=== PATIENT | male | born 1945 | race Caucasian/White ===

== ENCOUNTER → 2017-05-01 | Outpatient (CLI) | payer MEDICARE ==
[~2017-05-01] MED LIST: ADULT LOW DOSE81 MG; ANTIVERT25 MG PO; ASPIR 8181 MG PO; ASPIRIN325; ASPIRIN325 PO; ATIVAN0.5 MG PO; ATIVAN1 MG PO; AUGMENTIN 875875 M1 PO; AUGMENTIN 875875 MG PO; AURALGAN EAR DR14 ML OTIC; AZO STANDARD95 MG; B-12250 MCG PO; BACTRIM DS TAB1 EAC1 PO; BENADRYL25 MG; BENADRYL25 MG PO; BENTYL 10 MG CA10 MG PO; CELEXA 20 MG TA20 MG PO; CIPROFLOXACIN500 M1; CIPROFLOXACIN500 M1 PO; CIPROFLOXACIN500 M3 PO; CLONIDINE0.1 PO; CYCLOBENZAPRINE10 MG; DITROPAN PO; DITROPAN XL5 MG PO; DONNATAL EXTEN1 EACH PO; DONNATAL EXTEN1 EACH SL; DURAGESIC25 MCG/HR TRANSDERM; FLAGYL500 MG PO; FLEXERIL PO; FLOMAX; FLOMAX0.4 MG PO; FLONASE 0.05%50 MCG NASAL; HYDROCODON-ACE1 EAC2; HYDROCODON-ACE1 EAC8 PO; HYDROCODONE-AP1 EA15 PO; HYDROCODONE-AP1 EAC6 PO; HYOSCYAMINE; HYOSCYAMINE0.15 MG PO; HYOSCYAMINE0.375 M2 PO; IMDUR 30 MG TAB30 M1 PO; KLOR-CON 1010 MEQ PO; LASIX 20 MG TAB20 MG PO; LEVAQUIN 500 M500 M2 PO; LIPITOR20 MG PO; LISINOPRIL10 MG PO; LOPRESSOR25 PO; MACROBID 100 M100 M1 PO; MELATONIN1 MG PO; MOBIC15 MG PO; MOBIC7.5 M1 PO; MORPHINE SULFAT15 M3; MULTIVITAMINS PO; NEURONTIN 300300 M1 PO; NEURONTIN600 MG PO; NORCO 10-325 T1 EAC1 PO; NORCO 5-325 TA1 EACH PO; NYSTATIN 1100000 U/M PO; OMEPRAZOLE40 MG PO; ONDANSETRON HCL4 M2 PO; OXYBUTYNIN 5 MG5 M2 PO; OXYBUTYNIN CHLO10 MG PO; PERCOCET 5-3251 EACH PO; PERCOCET PO; PHENERGAN 25 MG25 M1 PO; POTASSIUM PO; POTASSIUM99 M1 PO; PREDNISONE 20 M20 M1 PO; PREDNISONE50 MG PO; PRILOSEC 20 MG20 MG PO; PRINIVIL20 MG PO; PROMS25 WY PO; PROSCAR 5MG TABL5 MG PO; PROTONIX40 M1 PO; PROTONIX40 MG PO; PYRIDIUM200 MG PO; ROBAXIN 750 MG750 MG PO; ROXICODONE15 MG; SENNA S TABLET1 EACH PO; SILVADENE20 GM TOP; STOOL SOFTENER1 EAC2 PO; SUDAFED30 MG PO; TOPROL XL25 MG PO; TRAMADOL 50 MG50 MG PO; UROXATRAL PO; VESICARE 5 MG TA5 M1 PO; VITAMIN D3400 UNIT PO; XANAX; XANAX 0.5 MG0.5 M1 PO; XANAX 0.5 MG0.5 MG PO; XANAX 1 MG TABLE1 MG PO; XYZAL5 MG PO; ZANTAC 150MG T150 M1 PO; ZANTAC 150MG T150 MG PO; ZOCOR20 MG PO; ZOFRAN; ZOFRAN ODT4 MG PO; ZOFRAN ODT4 MG SUBLING; ZOFRAN4 MG; ZOFRAN4 MG PO; [UNRECOGNIZED DRUG - OTHER] PO
== END ==
LOC: M.LAB 04:00
DX: Z01.812 Encounter for preprocedural laboratory examination (principal); E11.9 Type 2 diabetes mellitus without complications

== ENCOUNTER → 2017-05-28 | Outpatient (CLI) | payer MEDICARE | LOC: M.RAD 09:00 | DX: K44.9 Diaphragmatic hernia without obstruction or gangrene (principal); K21.9 Gastro-esophageal reflux disease without esophagitis; E11.9 Type 2 diabetes mellitus without complications; I10 Essential (primary) hypertension; K57.90 Diverticulosis of intestine, part unspecified, without perforation or abscess without bleeding; I48.0 Paroxysmal atrial fibrillation; I25.5 Ischemic cardiomyopathy; I25.10 Atherosclerotic heart disease of native coronary artery without angina pectoris; E05.90 Thyrotoxicosis, unspecified without thyrotoxic crisis or storm; R11.10 Vomiting, unspecified ==

== ENCOUNTER → 2017-09-23 | Outpatient (CLI) | payer MEDICARE | LOC: M.RAD 14:25 | DX: M43.16 Spondylolisthesis, lumbar region (principal); G89.29 Other chronic pain ==

== ENCOUNTER 2018-04-07 13:27 | Inpatient (IN) | payer MEDICARE ==
[~2018-04-07] VITALS: Ht 175.3 cm; Wt 74.4 kg
--- NOTE | ~2018-04-07 | CON ---
[address] [address] CONSULTATION Name: AMYKATARINA CELIS Room: [address] IN M.R.#: [id number] Admission: 04/07/18 Attend Phys: Madisyn Soto Discharge: Date of : 45 Report #: [id number] THIS REPORT FOR: //name// CC: Hermila Hardy DATE OF SERVICE: 04/08/2018 HISTORY OF PRESENT ILLNESS: This a pleasant 72-year-old male with past medical history of dementia, hypertension, hypothyroidism, coronary artery disease, who was brought in from his long term after persistent nausea and vomiting. The patient is unable to provide significant history at bedside and there is no family present and therefore I have been able to obtain most of the history from the chart. The patient reports that he has pain in his upper abdomen and this has been going on for a few days. He reports associated nausea and vomiting and inability to keep anything down. The patient denies any fevers, chills, hematemesis or hematochezia. He denies any change in his bowel habits. The patient is unaware of any weight loss at this time. PAST MEDICAL HISTORY: As mentioned, he has a history of hypertension, hyperthyroidism, vascular dementia, BPH, hyperlipidemia. PAST SURGICAL HISTORY: The patient had a remote history of back surgery, appendectomy, tonsillectomy and left shoulder surgery. FAMILY HISTORY: Not relevant due to the patient's advanced age. SOCIAL HISTORY: The patient denies smoking, alcohol or recreational drug use. REVIEW OF SYSTEMS: Comprehensive 10-point review of systems is negative except for what was mentioned above. PHYSICAL EXAMINATION: VITAL SIGNS: Blood pressure 131/79, pulse ox 99%, prior temperature 36.6 and respirations 20. GENERAL: The patient is awake and alert, is not oriented to time, but is oriented to self and person. HEENT: Pupils are equal, round, reactive to light and accommodation. Mucous membranes are moist. There is no congestion. LUNGS: Clear to auscultation bilaterally. CARDIOVASCULAR: Rate and rhythm regular, S1, S2 present. ABDOMEN: Soft. There is no distention, guarding or rigidity. Bowel sounds are present. EXTREMITIES: Warm, well perfused. There is no edema. SKIN: [place] [address] CONSULTATION Name: KATARINA REYES Room: [address] IN [facility]#: [id number] Admission: 04/07/18 Attend Phys: Madisyn Soto Discharge: Date of : 45 Report #: [id number] LABORATORY DATA: Hemoglobin 12.2, hematocrit 36.3, WBC count 9.9, platelet count 178. Sodium 141, potassium 3.9, chloride 102, bicarbonate 31, BUN 16, creatinine 1.1, total bilirubin 0.4, AST 19, ALT 20, alkaline phosphatase 76, lipase 69. CT abdomen and pelvis demonstrates patchy ground glass opacity in the right lung base, mild diverticulosis, descending and sigmoid colon without diverticulitis and 3 cm fusiform infrarenal aortic aneurysm. ASSESSMENT AND PLAN: This is a pleasant 72-year-old male patient with past medical history of vascular dementia, hypertension, hypothyroidism, hyperlipidemia, who was brought in from his long term for persistent nausea and vomiting. At this time, there are no signs of dehydration. The CT scan was relatively unremarkable. We would like to perform an EGD to rule out mucosal disease, but there is no family at bedside and no DPOA identified. I will get a gastric emptying test, if we are unable to perform the EGD. Depending on the results of the test, we may have to get the EGD done under medical necessity. By: [id number] Rivero MD /nt
[~2018-04-07 13:27] MED LIST changes: +DURAGESIC1 EAC4 TP; -DURAGESIC25 MCG/HR TRANSDERM; +LASIX 40 MG TAB40 M2 PO
[2018-04-07 13:33] VITALS: BP 144/95
[2018-04-07 14:13] LABS: HEMATOCRIT 36.3 % (42.0-52.0); HEMOGLOBIN 12.2 gm/dL (14.0-18.0); MCH 32.6 pg (26.0-34.0); MCHC 33.5 g/dL (28.0-37.0); MCV 97.3 fL (80.0-100.0); MPV 8.2 fl. (7.2-11.1); NUCLEATED RBCS 0 /100WBC; PLATELET COUNT* 178 thou/uL (150-400); RBC 3.73 mil/uL (4.50-6.00); RDW-CV 12.9 % (10.5-14.5); WBC 9.9 thou/uL (4.0-11.0)
[2018-04-07 14:20] LABS: CREATININE 1.1 mg/dL (0.6-1.3); POTASSIUM 3.9 mmol/L (3.5-5.1)
[2018-04-07 14:25] LABS: ALBUMIN 3.9 g/dL (3.4-5.0); TOTAL BILIRUBIN 0.4 mg/dL (<0.1-1.0); TOTAL PROTEIN 8.9 g/dL (6.4-8.2)
[2018-04-07 14:36] LABS: ABSOLUTE BASOPHILS 0.1 thou/uL (0.0-0.2); ABSOLUTE EOSINOPHILS 0.1 thou/uL (0.0-0.7); ABSOLUTE LYMPHOCYTES 0.8 thou/uL (0.8-5.3); ABSOLUTE MONOCYTES 0.5 thou/uL (0.0-1.2); ABSOLUTE NEUTROPHILS 8.4 thou/uL (1.6-8.1)
[2018-04-07 14:37] LABS: MACROCYTES 1+; PLATELET ESTIMATE ADEQUATE
[2018-04-07 14:38] LABS: TOXIC GRANULATION 1+
[2018-04-07 17:05] VITALS: BP 129/87
[2018-04-07] MEDS ORDERED: CELEXA20 MG PO (17:54)
[2018-04-07] MEDS ORDERED: CRANBERRY250 MG PO (17:54)
[2018-04-07] MEDS ORDERED: FLOMAX0.4 MG PO (17:59)
[2018-04-07 18:00] VITALS: BP 128/83
[2018-04-07] MEDS ORDERED: TYLENOL EXTRA500 MG PO (18:01)
[2018-04-07] MEDS ORDERED: XANAX 0.25 MG0.25 MG PO (18:02)
[2018-04-07] MEDS ORDERED: BENTYL 10 MG CA10 M1 PO (18:05)
[2018-04-07] MEDS ORDERED: NORCO 10-325 T1 EACH PO (18:06)
[2018-04-07] MEDS ORDERED: FLONASE 0.05%50 MCG NASAL (18:06)
[2018-04-07] MEDS ORDERED: MAGIC MOUTHWASH PO (18:08)
[2018-04-07] MEDS ORDERED: LOPERAMIDE 2 MG2 M1 PO (18:09)
[2018-04-07] MEDS ORDERED: ANTIVERT25 MG PO (18:10)
[2018-04-07] MEDS ORDERED: MUCINEX600 MG PO (18:10)
[2018-04-07] MEDS ORDERED: PERCOCET PO (18:11)
[2018-04-07] MEDS ORDERED: ZOFRAN ODT4 MG PO (18:11)
[2018-04-07] MEDS ORDERED: MIRALAX17 GM PO (18:12)
[2018-04-07] MEDS ORDERED: PHENERGAN 25 MG25 M1 PO (18:13)
[2018-04-07 20:10] VITALS: BP 137/74
[2018-04-07 22:41] LABS: URINE BILIRUBIN NEGATIVE (Negative); URINE BLOOD TRACE (Negative); URINE CLARITY CLEAR; URINE COLOR YELLOW; URINE GLUCOSE-RANDOM NEGATIVE (Negative); URINE KETONES NEGATIVE (Negative); URINE LEUKOCYTES-REFLEX NEGATIVE (Negative); URINE NITRITE-REFLEX NEGATIVE (Negative); URINE PROTEIN NEGATIVE (Negative); URINE SPECIFIC GRAVITY <= 1.005 (1.005-1.030); URINE UROBILINOGEN 0.2 E.U./dl (0.2-1.0)
--- NOTE | 2018-04-08 05:42 | NUR ---
PT AWAKE MOST ALL NIGHT, DOZING AT TIMES AFTER IV PAIN MED. EMESIS AT START OF SHIFT, MEDS GIVEN WITH GOOD RESULT. CO ABD SORENESS AND BACK PAIN, NAUSEA MEDS AND IV PAIN MED GIVEN WITH FAIR RESULT. TOLERATING ICE CHIPS AND SIPS. LFA IVF INFUSING PER PUMP. AO TO PERSON, CONFUSED AND ANXIOUS AND AGITATED AT TIMES, STATING "IM READY TO GET OUT OF HERE." SITTER AT BEDSIDE. UP WITH SBA AND WALKER TO BATHROOM, VOIDING ONCE AND INCONTINENT EPISODE ON FLOOR-UA SENT TO LAB. NO STOOLS OVERNIGHT. RESTLESS. NO LABS THIS MORNING. UP IN CHAIR THIS MORNING.
[2018-04-08 07:40] VITALS: BP 113/68
--- NOTE | 2018-04-08 15:20 | NUR ---
SW attempted to meet with pt; pt with nursing and pt was noted to be confused. SW to continue to follow to assist with safe dc planning.
--- NOTE | 2018-04-08 16:51 | EKG ---
[place] [address] ELECTROCARDIOGRAM REPORT Name: KATARINA REYES Room: [address] ADM IN M.R.#: [id number] Admission: 04/07/18 Attend Phys: Madisyn Soto Discharge: Date of : 45 Report #: [id number] THIS REPORT FOR: //name// [facility] ED Test Date: 2018-04-07 Test Time: 14:41:45 Pat Name: KATARINA REYES Department: Room: [facility] Gender: M Environmental Scientists: MILAGRO : 1945 Requested By: Tray Sprague Order Number: [id number] MD: Hakeem Gomes Measurements Intervals [place] Rate: 91 P: 21 DC: 130 QRS: -6 QRSD: 106 T: 29 QT: 359 QTc: 442 Interpretive Statements Sinus tachycardia Multiple ventricular premature complexes Low voltage, extremity leads Delayed R-wave progression Compared to ECG 02/20/2017 06:56:30 Ventricular premature complex(es) now present Sinus rhythm no longer present Electronically Signed On 04-08-2018 16:51:19 BILINGUAL COUNTER SALES RETAIL by Hakeem Gomes [email or web address] <ELECTRONICALLY SIGNED> By: Hakeem Gomes MD, FACC 04/08/18 1651 1441 1441 Hakeem Gomes MD, FAC /EPI
--- NOTE | 2018-04-08 17:45 | NUR ---
ASSESSMENT COMPLETE. PT CONFUSED THROUGHOUT THE DAY WITH SITTER AT BEDSIDE. PT HAS GAGGING AND NAUSEA NOTED. NO VOMITTING DURING THE DAY. PT GIVEN IV NAUSEA MEDICATION PRN. PT PAIN MEDICATION CHANGED TO PO. FAMILY STATES IV MORPHINE MAKES HIS CONFUSION WORSE. PT HAD RETENTION, ALVAREZ PLACED WITH BLADDER SCAN SHOWING GREATER THAN 500ML. GI CONSULTED AND IS TO DO EGD TOMORROW, NEED CONSENTS SIGNED IF HAS DPOA. IV FLUIDS INFUSING. IV LEVAQUIN GIVEN THIS AM. SEE ASSESSMENT AND VITALS FOR OTHER DETAILS. CALL LIGHT WITHIN REACH, WILL CONTINUE PLAN OF CARE
[2018-04-08 21:15] VITALS: BP 131/79
[2018-04-09 03:39] LABS: ABSOLUTE LYMPHOCYTES 1.6 thou/uL (0.8-5.3); ABSOLUTE MONOCYTES 0.9 thou/uL (0.0-1.2); ABSOLUTE NEUTROPHILS 3.4 thou/uL (1.6-8.1); BASOPHILS 0.2 %; HEMATOCRIT 28.6 % (42.0-52.0); LYMPHOCYTES 26.9 %; MCH 33.3 pg (26.0-34.0); MCV 97.9 fL (80.0-100.0); MONOCYTES 15.1 %; MPV 8.6 fl. (7.2-11.1); NUCLEATED RBCS 0 /100WBC; PLATELET COUNT* 115 thou/uL (150-400); POLYS 57.8 %; RBC 2.92 mil/uL (4.50-6.00); WBC 5.8 thou/uL (4.0-11.0)
[2018-04-09 03:58] LABS: HEMOGLOBIN 9.7 gm/dL (14.0-18.0)
--- NOTE | 2018-04-09 05:43 | NUR ---
PATIENT SLEPT OFF AND ON THIS SHIFT. PATIENT CONTINUES TO BE CONFUSED AND RESTLESS AT TIMES. PATIENT IS NPO FOR A POSSIBLE EGD TODAY. REMAINS A 1:1 SITTER. IV FLUIDS CONTINUE TO INFUSE ORDERED. PATIENT CONTINUES TO SPIT UP CLEAR STUFF UNSURE WHETHER ITS CAUSED BY NAUSEA OR IS MUCUS. PATIENT WAS GIVEN NAUSEA MEDICINE TWICE. WILL CONTINUE TO MONITOR.
[2018-04-09 08:10] VITALS: BP 165/86
[2018-04-09 08:25] VITALS: BP 168/78
--- NOTE | 2018-04-09 12:52 | NUR ---
BYRON called pt friend Melvin to complete assessment as pt still has confusion and a sitter. Melvin informed pt lives at [facility] in [place] [phone] and Director Jackie at [phone]. Melvin said that he helps provide transportation but is not his caregiver. Pt also has a sister who is an authorized contact. SW to continue to follow to assist with safe dc planning.
[2018-04-09 17:11] VITALS: BP 140/78
--- NOTE | 2018-04-09 17:20 | NUR ---
PATIENT RESTING IN BED. PATIENT IS UP STANDBY ASSIST. PATIENT HAS NOT SLEPT TODAY. PATIENT WAS NPO FOR GASTRIC EMPTY TEST THIS AFTERNOON. PATIEN THAS GOOD APPETITE THIS EVENING, NO COMPLAINTS OF NAUSEA. PATIENT HAS HAD A COUPLE BOUTS OF DIARRHEA. PATIENT IS CONFUSED AND PULLED OUT IV THIS AM. PATIENT IS COOPERATIVE AND EASILY REDIRECTED. PATIENT DENIES ANY NEEDS AT THIS TIME. SITTER AT BEDSIDE. WILL CONTINUE TO MONITOR.
[2018-04-09 20:00] VITALS: BP 136/53
--- NOTE | 2018-04-10 05:02 | NUR ---
this nurse assumes care of pt 04/09/18 at 1930, pt is awake, oriented to self, sitter at bedside, pt is coopertive and calm throughout the night, pt medicated for back pain, combs catheter remains intact to dependent drainage, clear yellow urine present, fluids infusing via iv, pt resting in bed at this time, call light within reach, siderails up x2, bed alarm on, no s/s acute distress noted
[2018-04-10 08:00] VITALS: BP 161/91
[2018-04-10 13:05] VITALS: BP 161/91
--- NOTE | 2018-04-10 13:06 | NUR ---
Pt to dc home to [facility] today. BYRON called and spoke with [facility] [phone] to inform of pt dc home today and left a message on the director, Jackie's cell phone number. BYRON called and faxed referral and orders to pt preference and current HH agency of [facility]. [phone], fax [phone]. BYRON called and spoke with pt friend Melvin to inform of pt dc home today and he said to call him whenever pt was ready to dc home and he would provide ride home [phone].
[2018-04-10] MEDS ORDERED: LEVAQUIN 500 M500 M2 PO (13:26)
--- NOTE | 2018-04-10 14:35 | NUR ---
ATIENT DISCHARGED TO HOME WITH HOME HEALTH , ASSISTED LIVING. REPORT CALLED TO [facility]. DISCHARGE PAPERS REVIEWED AND SIGNED. PRESCRIPTION AND INFORMATION SHEETS GIVEN. PRESCRIPTION FAXED TO FACILITY PER REQUEST. IV REMOVED. ALVAREZ IN PLACE, PATIENT TO FOLLOW-UP WITH UROLOGY, FACILITY NOTIFIED. PATIENT DENIES ANY FURTHER NEEDS. PATIENT TAKEN BY WHEELCHAIR TO EXIT. LEFT WITH FRIEND FEI.
== END 2018-04-10 14:35 | disposition home health service (06) | DRG 177 ==
LOC: M.ERS 13:27 → M.3W 16:38 → M.TBA-ER 16:38 → M.3W 17:04
PROVIDERS: Nurse Practitioner Family; ADMIT Internal Medicine
DX: J15.6 Pneumonia due to other Gram-negative bacteria (principal); G93.41 Metabolic encephalopathy; A08.4 Viral intestinal infection, unspecified; J15.9 Unspecified bacterial pneumonia; I10 Essential (primary) hypertension; F41.9 Anxiety disorder, unspecified; K21.9 Gastro-esophageal reflux disease without esophagitis; I48.91 Unspecified atrial fibrillation; G89.29 Other chronic pain; M54.9 Dorsalgia, unspecified; E03.9 Hypothyroidism, unspecified; I25.10 Atherosclerotic heart disease of native coronary artery without angina pectoris; F01.50 Vascular dementia, unspecified severity, without behavioral disturbance, psychotic disturbance, mood disturbance, and anxiety; E78.5 Hyperlipidemia, unspecified; N40.1 Benign prostatic hyperplasia with lower urinary tract symptoms; R33.8 Other retention of urine; Z90.49 Acquired absence of other specified parts of digestive tract; Z86.73 Personal history of transient ischemic attack (TIA), and cerebral infarction without residual deficits; Z88.0 Allergy status to penicillin; Z88.6 Allergy status to analgesic agent; Z88.1 Allergy status to other antibiotic agents; Z91.011 Allergy to milk products; Z79.899 Other long term (current) drug therapy

== ENCOUNTER → 2018-05-02 | Outpatient (CLI) | payer MEDICARE ==
[~2018-05-02] MED LIST changes: +BENTYL 10 MG CA10 M1 PO; +CELEXA20 MG PO; +CRANBERRY250 MG PO; +LOPERAMIDE 2 MG2 M1 PO; +MAGIC MOUTHWASH PO; +MIRALAX17 GM PO; +MUCINEX600 MG PO; +NORCO 10-325 T1 EACH PO; +TYLENOL EXTRA500 MG PO; +XANAX 0.25 MG0.25 MG PO
== END ==
LOC: M.MRI 04-21 12:11 → M.ULTRA 04-24 13:30 → M.MRI 14:15
DX: G31.9 Degenerative disease of nervous system, unspecified (principal); R41.0 Disorientation, unspecified; I65.23 Occlusion and stenosis of bilateral carotid arteries; G11.9 Hereditary ataxia, unspecified

== ENCOUNTER → 2018-07-31 | Outpatient (CLI) | payer MEDICARE | LOC: M.CT 11:56 | DX: K57.30 Diverticulosis of large intestine without perforation or abscess without bleeding (principal); N28.1 Cyst of kidney, acquired; I71.4 Abdominal aortic aneurysm, without rupture; N28.9 Disorder of kidney and ureter, unspecified; N32.89 Other specified disorders of bladder; Z98.890 Other specified postprocedural states ==

== ENCOUNTER 2018-09-21 06:09 | Inpatient (IN) | payer MEDICARE ==
[~2018-09-21] VITALS: Ht 177.8 cm; Wt 72.6 kg
[2018-09-21 06:11] VITALS: BP 164/91
[2018-09-21] MEDS ORDERED: ASPIR 8181 MG PO (06:28)
[2018-09-21] MEDS ORDERED: DURAGESIC1 EAC4 TRANSDERM (06:28)
[2018-09-21 06:47] LABS: ABSOLUTE EOSINOPHILS 0.5 thou/uL (0.0-0.7); ABSOLUTE MONOCYTES 0.4 thou/uL (0.0-1.2); ABSOLUTE NEUTROPHILS 5.8 thou/uL (1.6-8.1); BASOPHILS 0.4 %; EOSINOPHILS 6.1 %; HEMATOCRIT 31.6 % (42.0-52.0); HEMOGLOBIN 10.5 gm/dL (14.0-18.0); LYMPHOCYTES 12.9 %; MCH 31.8 pg (26.0-34.0); MCHC 33.4 g/dL (28.0-37.0); MCV 95.2 fL (80.0-100.0); MONOCYTES 5.3 %; MPV 8.1 fl. (7.2-11.1); NUCLEATED RBCS 0 /100WBC; PLATELET COUNT* 183 thou/uL (150-400); POLYS 75.3 %; RBC 3.32 mil/uL (4.50-6.00); RDW-CV 14.3 % (10.5-14.5); WBC 7.7 thou/uL (4.0-11.0)
[2018-09-21 06:49] LABS: CALCIUM 8.7 mg/dL (8.5-10.1); CREATININE 1.3 mg/dL (0.6-1.3)
[2018-09-21 06:51] LABS: PROTIME 10.2 Seconds (9.20-11.50)
[2018-09-21 06:53] LABS: ALBUMIN 3.5 g/dL (3.4-5.0); TOTAL BILIRUBIN 0.5 mg/dL (<0.1-1.0); TOTAL PROTEIN 8.8 g/dL (6.4-8.2)
--- NOTE | 2018-09-21 07:50 | NUR ---
PT IS A&O X1, NOT MAKING SENSE WHEN SPEAKING, ASKING FOR PAIN MEDICATION. PHYSICIAN NOTIFIED.
[2018-09-21 08:59] VITALS: BP 129/71
[2018-09-21 09:45] VITALS: BP 144/82
[2018-09-21 16:00] VITALS: BP 159/97
--- NOTE | 2018-09-21 17:19 | NUR ---
PT A&Ox SELF. VITALS STABLE. PAIN CONTROLLED WITH NORCO. DENIED NAUSEA. REGULAR DIET UNITL MIDNIGHT THEN NPO. ATTEMPTS TO GET OUT OF BED BY SELF DESPITE FALL EDUCATION GIVEN. IV PATENT. ALVAREZ IN PLACE FOR RETENTION. FALL PRECAUTIONS IN PLACE. CALL LIGHT WITHIN REACH. WILL CONTINUE TO MONITOR,
[2018-09-21 20:10] VITALS: BP 143/75
[2018-09-22 04:37] VITALS: BP 164/89
--- NOTE | 2018-09-22 04:52 | NUR ---
PT ALERT AND ORIENTED, CONFUSED AT TIMES. VITALS STABLE RA. MEDS GIVEN ORDERED. PAIN MANAGED WITH HYDROCODONE. ALVAREZ IN PLACE. NPO AT MIDNIGHT. HOURLY ROUNDING COMPLETED. WILL CONTINUE TO MONITOR.
[2018-09-22 08:00] VITALS: BP 141/81
--- NOTE | 2018-09-22 15:40 | NUR ---
SW completed initial assessment from previous record and knowledge of pt situation from previous admission. Pt was sleeping and nurse reported pt is not the best historian. Pt lives at [facility] and has hx with [facility]. Pt has friend Melvin who has helped with transportation in the past. SW to continue to follow to assist with safe dc planning.
--- NOTE | 2018-09-22 17:15 | NUR ---
PT CONFUSED, A&Ox SELF. IV AND ALVAREZ PATENT. DRESSINGS CLEAN, DRY AND INTACT FROM KYPHOPLASTY. PAIN CONTROLLED WITH NORCO AND FLEXERIL. UP WITH 1. ON RA. VITALS STABLE. FALL PRECAUTIONS IN PLACE. CALL LIGHT WITHIN REACH. WILL CONTINUE TO MONITOR.
[2018-09-22 17:31] VITALS: BP 147/93
[2018-09-22 20:15] VITALS: BP 150/68
[2018-09-23] VITALS: BP 134/80
[2018-09-23 04:00] VITALS: BP 132/82
[2018-09-23 04:54] LABS: CALCIUM 8.4 mg/dL (8.5-10.1); CREATININE 0.9 mg/dL (0.6-1.3); POTASSIUM 3.2 mmol/L (3.5-5.1)
--- NOTE | 2018-09-23 05:27 | NUR ---
PT SLEPT WELL OVERNIGHT. RECEIVING PAIN MED AND FLEXERIL AT BEDTIME. VERTEBROPLASTY DRSGS TO BACK, SMALL AMOUNT SEROSANG DRNG NOTED. ALVAREZ DRAINING YELLOW URINE. RAC SL. CONFUSED, ABLE TO ANSWER YES OR NO QUESTIONS. AM LABS DRAWN. CALL LITE IN EASY REACH BED ALARM ON FOR SAFETY. CM TO ASSIST WITH DC PLAN.
[2018-09-23 07:55] VITALS: BP 155/89
[2018-09-23 10:54] VITALS: BP 155/89
[2018-09-23 11:19] VITALS: BP 155/89
--- NOTE | 2018-09-23 11:33 | NUR ---
MACHINE PRESSER INFORMED THAT THE PATIENT IS READY TO D/C TODAY BACK TO [facility]. D/C BODY MECHANIC SPOKE TO MIGUEL ÁNGEL WITH [facility] TO INFORM OF THE PATIENT'S RETURN, AND FAXED THE PATIENT'S D/C ORDERS. PATIENT'S CATALINA IN THE ROOM AND INFORMS THAT THERE ISN'T [facility] AVAILABLE TO PROVIDE TRANSPORTATION. D/C BODY MECHANIC ARRANGED TRANSPORT WITH [employer] [facility] FOR [id number]. PATIENT AND CATALINA INFORMED OF THIS AND ARE IN AGREEMENT. D/C BODY MECHANIC SPOKE TO [facility] TO INFORM OF THE PATIENT'S D/C AND FAXED THE PATIENT'S FACESHEET, H&P, AND D/C ORDERS. [facility] TO CONTACT [facility] TO ARRANGE A TIME TO VIST. BODY MECHANIC INFORMED THE RN IN-CHARGE OF THE PATIENT OF THE PATIENT'S TIME OF TRANSPORT AND WHERE TO CALL REPORT. RN IN AGREEMENT. CM WILL REMAIN AVAILABLE TO ASSIST AND FOLLOW NEEDED. [facility] PHONE: [phone] FAX: [phone] [facility] [phone] FAX: [phone]
[2018-09-23 12:32] VITALS: BP 155/89
--- NOTE | 2018-09-23 12:33 | NUR ---
PT BELONGINGS GATHERED. IV REMOVED. REPORT CALLED. ALVAREZ REMOVED. PT DRESSED. CHART COPIED. FALL RISK PRECAUTIONS IN PLACE. HOURLY ROUNDING COMPLETED. PT LEFT WITH TRANSPORTER TO FACILITY VIA WHEELCHAIR WITH WHEELCHAIR VAN.
== END 2018-09-23 12:34 | disposition short-term general hospital (02) | DRG 516 ==
LOC: M.ERS 06:09 → M.TBA-ER 07:33 → M.ORTHSURG 07:33
PROVIDERS: Family Medicine; ADMIT Family Medicine
DX: S32.039A Unspecified fracture of third lumbar vertebra, initial encounter for closed fracture (principal); D68.59 Other primary thrombophilia; S32.029A Unspecified fracture of second lumbar vertebra, initial encounter for closed fracture; K21.9 Gastro-esophageal reflux disease without esophagitis; W18.39XA Other fall on same level, initial encounter; N18.3 Chronic kidney disease, stage 3 (moderate); I73.9 Peripheral vascular disease, unspecified; E87.6 Hypokalemia; F41.9 Anxiety disorder, unspecified; I12.9 Hypertensive chronic kidney disease with stage 1 through stage 4 chronic kidney disease, or unspecified chronic kidney disease; Z66 Do not resuscitate; G31.84 Mild cognitive impairment of uncertain or unknown etiology; I48.91 Unspecified atrial fibrillation; Z86.73 Personal history of transient ischemic attack (TIA), and cerebral infarction without residual deficits; Z90.49 Acquired absence of other specified parts of digestive tract; Z79.82 Long term (current) use of aspirin; Z88.0 Allergy status to penicillin; Z88.5 Allergy status to narcotic agent; Z88.1 Allergy status to other antibiotic agents; Z91.011 Allergy to milk products; Y93.89 Activity, other specified; Y92.89 Other specified places as the place of occurrence of the external cause; Y99.8 Other external cause status

== ENCOUNTER 2020-03-02 03:28 | Emergency (ER) | payer MEDICARE ==
[~2020-03-02] VITALS: Ht 165.1 cm; Wt 72.6 kg
[~2020-03-02 03:28] MED LIST changes: +DURAGESIC1 EAC4 TRANSDERM
[2020-03-02] MEDS ORDERED: VITAMIN B-121000 MC2 (04:02)
[2020-03-02] MEDS ORDERED: DIVALPROEX SOD125 M1 (04:03)
[2020-03-02] MEDS ORDERED: BENAZEPRIL HCL5 MG (04:03)
[2020-03-02 04:05] LABS: ABSOLUTE EOSINOPHILS 0.2 thou/uL (0.0-0.7); ABSOLUTE LYMPHOCYTES 1.9 thou/uL (0.8-5.3); ABSOLUTE MONOCYTES 0.5 thou/uL (0.0-1.2); BASOPHILS 0.9 %; EOSINOPHILS 4.2 %; HEMATOCRIT 25.4 % (42.0-52.0); HEMOGLOBIN 8.8 gm/dL (14.0-18.0); LYMPHOCYTES 40.8 %; MCH 33.6 pg (26.0-34.0); MCHC 34.7 g/dL (28.0-37.0); MONOCYTES 11.5 %; MPV 7.2 fl. (7.2-11.1); NUCLEATED RBCS 0 /100WBC; PLATELET COUNT* 171 thou/uL (150-400); POLYS 42.6 %; RBC 2.61 mil/uL (4.50-6.00); RDW-CV 14.7 % (10.5-14.5); WBC 4.6 thou/uL (4.0-11.0)
[2020-03-02 04:12] LABS: CALCIUM 8.6 mg/dL (8.5-10.1); CREATININE 1.4 mg/dL (0.6-1.3); POTASSIUM 4.3 mmol/L (3.5-5.1)
[2020-03-02 04:14] LABS: PROTIME 10.9 Seconds (9.20-11.50)
[2020-03-02 04:16] LABS: ALBUMIN 2.8 g/dL (3.4-5.0); TOTAL BILIRUBIN 0.2 mg/dL (<0.1-1.0); TOTAL PROTEIN 10.8 g/dL (6.4-8.2)
[2020-03-02 05:51] LABS: % SATURATION 29 % (20-39); IRON 72 ug/dL (50-175)
[2020-03-02 05:59] LABS: URINE BILIRUBIN NEGATIVE (Negative); URINE BLOOD NEGATIVE (Negative); URINE CLARITY CLEAR; URINE COLOR YELLOW; URINE GLUCOSE-RANDOM NEGATIVE (Negative); URINE KETONES NEGATIVE (Negative); URINE LEUKOCYTES-REFLEX NEGATIVE (Negative); URINE NITRITE-REFLEX NEGATIVE (Negative); URINE PROTEIN NEGATIVE (Negative); URINE UROBILINOGEN 0.2 E.U./dl (0.2-1.0)
[2020-03-02 08:28] VITALS: BP 159/80
--- NOTE | 2020-03-02 09:22 | EKG ---
[place] [address] ELECTROCARDIOGRAM REPORT Name: KATARINA REYES LALITA Room: [facility]#: [id number] Admission: 03/02/20 Attend Phys: Discharge: 03/02/20 Date of : 45 Date of Service: 03/02/20 0414 Report #: [id number] THIS REPORT FOR: //name// [facility] ED Test Date: 2020-03-02 Test Time: 04:14:11 Pat Name: KATARINA REYES Department: Room: Gender: Asset Specialist: ZIYAD : 1945 Requested By: Kristen Blum Order Number: [id number] MD: Richar Ag Measurements Intervals [place] Rate: 68 P: 29 MD: 152 QRS: -5 QRSD: 124 T: 24 QT: 422 QTc: 449 Interpretive Statements Sinus rhythm low voltage artifact noted poor r wave progression Baseline wander in lead(s) V1 Compared to ECG 04/07/2018 14:41:45 Ventricular premature complex(es) no longer present Electronically Signed On 03-02-2020 9:22:33 AUTOMOTIVE SERVICE ADVISOR by Richar Ag [email or web address] <ELECTRONICALLY SIGNED> By: Richar Ag MD, [facility] 03/02/20 0922 0414 0414 Richar Ag MD, [facility] /EPI
== END 2020-03-02 08:28 | disposition short-term general hospital (02) ==
LOC: M.ERS 03:28
PROVIDERS: Emergency Medicine
DX: R47.01 Aphasia (principal); Z20.828 Contact with and (suspected) exposure to other viral communicable diseases; K21.9 Gastro-esophageal reflux disease without esophagitis; I48.91 Unspecified atrial fibrillation; I12.9 Hypertensive chronic kidney disease with stage 1 through stage 4 chronic kidney disease, or unspecified chronic kidney disease; N18.30 Chronic kidney disease, stage 3 unspecified; Z90.49 Acquired absence of other specified parts of digestive tract; Z79.82 Long term (current) use of aspirin; Z79.899 Other long term (current) drug therapy; Z88.0 Allergy status to penicillin; Z88.6 Allergy status to analgesic agent; Z88.1 Allergy status to other antibiotic agents; Z91.011 Allergy to milk products

== ENCOUNTER 2020-03-06 20:45 | Inpatient (IN) | payer MEDICARE, MEDICAID ==
[~2020-03-06] VITALS: Ht 172.7 cm; Wt 68.0 kg
--- NOTE | ~2020-03-06 | CON ---
[address] [address] CONSULTATION Name: AMYKATARINAMERVIN CELIS Room: [address] IN M.R.#: [id number] Admission: 03/07/20 Attend Phys: Eliezer Kendall MD Discharge: Date of : 45 Report #: [id number] THIS REPORT FOR: //name// cc: ARTUR - No family physician/PCP FAM - No family physician/PCP ~ DATE OF SERVICE: 03/07/2020 HISTORY OF PRESENT ILLNESS: This is a 74-year-old male patient, who was seen by me for altered mental status. The patient is completely confused. I talked to the nurse looking after this patient and reviewed the patient's records and got some of the history from there; and subsequently, I called the patient's daughter and she provided most of the history. This patient lives in assisted living. He has been having symptoms suggestive of memory problems for more than a year. He was seen by a neurologist at [place]. They did multiple testings on him and diagnosed him with dementia. His baseline is that he does not know month and year, but he sometimes will recognize close relatives whom he has seen recently. He has been running temperature and looks like he has a UTI and he has been more confused. Even prior to that, this patient was put in isolation or quarantine because of COVID scare and he decompensated because there was no outside contact. He also became obsessed with another resident there and has trouble with agitation. REVIEW OF SYSTEMS: A 14-point review of systems was carried out. He has a history of back pain, abdominal pain, compression fracture, anxiety. Now, he has a UTI. At one time, he had expressive aphasia, right hip pain, pneumonia. He was diagnosed with vascular dementia, but I am not sure whether it was vascular dementia. He has a history of chronic kidney disease, history of atrial fibrillation, history of CVA, diverticulitis, tonsillectomy, shoulder surgery, peripheral vascular disease. This was his relevant 14-point review of systems. PAST MEDICAL HISTORY: Positive for dementia. FAMILY HISTORY: Unremarkable. SOCIAL HISTORY: He is in assisted living. PHYSICAL EXAMINATION: NEUROLOGIC: The patient's examination indicates he is alert. He has very little speech. Whatever speech he has, he does not make any sense. He does not follow any simple commands. Cranial nerve examination 2-12 was attempted. It was a very difficult exam, but does not look like there is any focality. Extremities: His reflexes are not elicitable, but I [place] [address] CONSULTATION Name: KATARINA REYES Room: [address] IN ..#: [id number] Admission: 03/07/20 Attend Phys: Eliezer Kendall MD Discharge: Date of : 45 Report #: [id number] cooperates. His tone looks somewhat diminished. He did not move much for me at all. He does not understand the instruction for cerebellar sign or do any fundus examination. He is a moderately built individual. He does not have any edema. Pulses are difficult to feel. CARDIAC: His heart is irregular, but he has a history of atrial fibrillation. VITAL SIGNS: Blood pressure is 155/62, respiration is 18, pulse is 54, his temperature is 100.7. LABORATORY DATA: His white count is 8.0; and his urinalysis shows increased WBC count. IMAGING STUDIES: He did not have any imaging study here, but he did have the imaging study at [facility]. His MRI and CAT scan was done, it was mostly unremarkable. IMPRESSION: The patient's clinical presentation is consistent with encephalopathy superimposed on his severe dementia. He just had a recent workup at [facility]. I discussed with the daughter the options and the options included repeating the test and doing more testing like LP. She wants conservative care because of his underlying severe dementia and that is the desirable thing to do, that we should confine ourselves to conservative and comfort care in this patient. His urinary tract infection will be treated and see how much progress he makes. Otherwise, nothing specific to add; and we will sign off and follow up as needed. Thank you very much for this referral. By: [id number] Guillen MD /kristi
[~2020-03-06 20:45] MED LIST changes: +BENAZEPRIL HCL5 MG; +DIVALPROEX SOD125 M1 PO; +VITAMIN B-121000 MC2
[2020-03-06 20:46] VITALS: BP 133/65
[2020-03-06 21:26] LABS: ABSOLUTE LYMPHOCYTES 1.4 thou/uL (0.8-5.3); ABSOLUTE MONOCYTES 0.8 thou/uL (0.0-1.2); ABSOLUTE NEUTROPHILS 5.7 thou/uL (1.6-8.1); BASOPHILS 0.5 %; HEMATOCRIT 25.9 % (42.0-52.0); HEMOGLOBIN 8.8 gm/dL (14.0-18.0); LYMPHOCYTES 17.8 %; MCH 33.6 pg (26.0-34.0); MCHC 34.2 g/dL (28.0-37.0); MCV 98.2 fL (80.0-100.0); MONOCYTES 9.6 %; MPV 7.6 fl. (7.2-11.1); NUCLEATED RBCS 0 /100WBC; PLATELET COUNT* 162 thou/uL (150-400); POLYS 72.1 %; RBC 2.64 mil/uL (4.50-6.00); RDW-CV 14.9 % (10.5-14.5)
[2020-03-06 21:28] LABS: URINE BLOOD 1+ (Negative); URINE CLARITY CLEAR; URINE COLOR YELLOW; URINE GLUCOSE-RANDOM NEGATIVE (Negative); URINE KETONES 2+ (Negative); URINE LEUKOCYTES-REFLEX 1+ (Negative); URINE NITRITE-REFLEX NEGATIVE (Negative); URINE PROTEIN 1+ (Negative); URINE SPECIFIC GRAVITY >= 1.030 (1.005-1.030); URINE UROBILINOGEN 0.2 E.U./dl (0.2-1.0)
[2020-03-06 21:32] LABS: URINE BILIRUBIN 2+ (Negative)
[2020-03-06 21:35] LABS: ICTOTEST (BILI CONFIRMATORY) Negative (Negative)
[2020-03-06 21:35] LABS: CALCIUM 8.1 mg/dL (8.5-10.1); CREATININE 1.7 mg/dL (0.6-1.3); POTASSIUM 3.7 mmol/L (3.5-5.1)
[2020-03-06 21:37] LABS: INR 1.1; PROTIME 11.7 Seconds (9.20-11.50)
[2020-03-06 21:46] LABS: ALBUMIN 2.6 g/dL (3.4-5.0); MAGNESIUM 1.8 mg/dL (1.8-2.4); TOTAL BILIRUBIN 0.3 mg/dL (<0.1-1.0); TOTAL PROTEIN 10.9 g/dL (6.4-8.2)
[2020-03-06 22:00] LABS: HYALINE CASTS 4-10 Moderate /LPF (None Seen); MUCUS 0-3 Light strn/LPF (None Seen); SQUAMOUS 0-3 Few /LPF (0-3)
[2020-03-06 22:01] LABS: BACTERIA-REFLEX >30 Many /HPF (None Seen); CRYSTALS None Seen /LPF (None Seen); URINE RBC 3-10 Few /HPF (0-2)
[2020-03-07 05:25] VITALS: BP 104/65
[2020-03-07 09:47] VITALS: BP 142/72
[2020-03-07 09:50] VITALS: BP 140/72
--- NOTE | 2020-03-07 11:40 | EKG ---
[place] [address] ELECTROCARDIOGRAM REPORT Name: KATARINA REYES Room: [address] ADM IN M.R.#: [id number] Admission: 03/07/20 Attend Phys: Eliezer Kendall, Discharge: Date of : 45 Date of Service: 03/06/202106 Report #: [id number] THIS REPORT FOR: //name// [facility] ED Test Date: 2020-03-06 Test Time: 21:07:32 Pat Name: KATARINA REYES Department: Room: [facility] Gender: M Blowing Weasand: LUIS : 1945 Requested By: Kristen Blum Order Number: [id number] MD: Richar Ag Measurements Intervals [place] Rate: 97 P: [place]: QRS: -18 QRSD: 151 T: 21 QT: 369 QTc: 469 Interpretive Statements sinus rhythm Multiple ventricular premature complexes Artifact in lead(s) II,III,aVL,aVF,V1,V2 Compared to ECG 03/02/2020 04:14:11 Ventricular premature complex(es) now present Poor R-wave progression no longer present Electronically Signed On 03-07-2020 11:40:08 STARCH AND PROSIZE MIXER by Richar Ag [email or web address] <ELECTRONICALLY SIGNED> By: Richar Ag MD, [facility] 03/07/20 1140 06 06 Richar Ag MD, [facility] /EPI
[2020-03-07 16:11] VITALS: BP 155/62
[2020-03-07 20:00] VITALS: BP 128/63
[2020-03-08 03:06] LABS: CALCIUM 7.7 mg/dL (8.5-10.1); CREATININE 1.3 mg/dL (0.6-1.3); POTASSIUM 3.7 mmol/L (3.5-5.1)
[2020-03-08 03:09] LABS: MAGNESIUM 1.6 mg/dL (1.8-2.4); PHOSPHORUS* 2.8 mg/dL (2.5-4.9)
[2020-03-08 07:30] VITALS: BP 117/61
[2020-03-08 15:39] VITALS: BP 130/55
[2020-03-08 20:00] VITALS: BP 136/56
[2020-03-09 04:30] VITALS: BP 115/73
[2020-03-09 05:40] LABS: CALCIUM 7.9 mg/dL (8.5-10.1); CREATININE 1.1 mg/dL (0.6-1.3); POTASSIUM 3.7 mmol/L (3.5-5.1); TOTAL BILIRUBIN 0.2 mg/dL (<0.1-1.0); TOTAL PROTEIN 8.8 g/dL (6.4-8.2)
[2020-03-09 06:02] LABS: ABSOLUTE EOSINOPHILS 0.1 thou/uL (0.0-0.7); ABSOLUTE LYMPHOCYTES 1.3 thou/uL (0.8-5.3); ABSOLUTE MONOCYTES 0.9 thou/uL (0.0-1.2); ABSOLUTE NEUTROPHILS 3.8 thou/uL (1.6-8.1); BASOPHILS 0.5 %; EOSINOPHILS 1.2 %; HEMATOCRIT 22.9 % (42.0-52.0); HEMOGLOBIN 7.6 gm/dL (14.0-18.0); MCHC 33.3 g/dL (28.0-37.0); MONOCYTES 14.8 %; MPV 7.1 fl. (7.2-11.1); NUCLEATED RBCS 0 /100WBC; PLATELET COUNT* 138 thou/uL (150-400); POLYS 61.5 %; RBC 2.31 mil/uL (4.50-6.00); RDW-CV 15.3 % (10.5-14.5); WBC 6.1 thou/uL (4.0-11.0)
[2020-03-09 07:50] VITALS: BP 151/86
[2020-03-09 16:00] VITALS: BP 113/62
[2020-03-09 17:16] LABS: MAGNESIUM 1.9 mg/dL (1.8-2.4); PHOSPHORUS* 3.5 mg/dL (2.5-4.9)
[2020-03-09 19:44] VITALS: BP 127/71
[2020-03-10 06:03] VITALS: BP 139/67
[2020-03-10 07:50] VITALS: BP 143/73
[2020-03-10 13:08] LABS: IgA 44 mg/dL (61-437); IgG 4439 mg/dL (603-1613); IgM 132 mg/dL (15-143)
[2020-03-10 14:17] LABS: URINE BILIRUBIN NEGATIVE (Negative); URINE BLOOD TRACE (Negative); URINE CLARITY CLEAR; URINE COLOR YELLOW; URINE GLUCOSE-RANDOM NEGATIVE (Negative); URINE KETONES NEGATIVE (Negative); URINE LEUKOCYTES NEGATIVE (Negative); URINE NITRITE NEGATIVE (Negative); URINE PROTEIN NEGATIVE (Negative); URINE UROBILINOGEN 0.2 E.U./dl (0.2-1.0)
[2020-03-10 16:00] VITALS: BP 118/63
[2020-03-10 19:40] VITALS: BP 135/68
[2020-03-11 07:55] VITALS: BP 113/53
[2020-03-11 12:56] LABS: ABSOLUTE EOSINOPHILS 0.1 thou/uL (0.0-0.7); ABSOLUTE LYMPHOCYTES 1.3 thou/uL (0.8-5.3); ABSOLUTE MONOCYTES 0.6 thou/uL (0.0-1.2); ABSOLUTE NEUTROPHILS 3.7 thou/uL (1.6-8.1); BASOPHILS 0.4 %; EOSINOPHILS 2.2 %; HEMATOCRIT 21.1 % (42.0-52.0); HEMOGLOBIN 7.1 gm/dL (14.0-18.0); LYMPHOCYTES 22.3 %; MCH 33.3 pg (26.0-34.0); MCHC 33.7 g/dL (28.0-37.0); MCV 98.7 fL (80.0-100.0); MONOCYTES 9.8 %; MPV 7.1 fl. (7.2-11.1); NUCLEATED RBCS 0 /100WBC; PLATELET COUNT* 170 thou/uL (150-400); POLYS 65.3 %; RBC 2.14 mil/uL (4.50-6.00); RDW-CV 14.9 % (10.5-14.5); WBC 5.7 thou/uL (4.0-11.0)
[2020-03-11 13:06] LABS: ALBUMIN 1.8 g/dL (3.4-5.0); CALCIUM 7.4 mg/dL (8.5-10.1); CREATININE 1.1 mg/dL (0.6-1.3); PHOSPHORUS* 3.3 mg/dL (2.5-4.9); POTASSIUM 3.7 mmol/L (3.5-5.1); TOTAL BILIRUBIN 0.2 mg/dL (<0.1-1.0); TOTAL PROTEIN 8.9 g/dL (6.4-8.2)
[2020-03-11 15:08] LABS: GLOBULIN TOTAL 5.9 g/dL (2.2-3.9); M-SPIKE 3.6 g/dL (Not Observed)
[2020-03-11 15:50] VITALS: BP 137/43
[2020-03-11 20:00] VITALS: BP 147/71
[2020-03-12 08:40] VITALS: BP 140/77
[2020-03-12 17:00] VITALS: BP 111/66
[2020-03-12 20:00] VITALS: BP 136/84
[2020-03-13 17:05] VITALS: BP 151/51
[2020-03-13 20:00] VITALS: BP 113/68
[2020-03-14 10:46] LABS: HEMATOCRIT 22.3 % (42.0-52.0); HEMOGLOBIN 7.6 gm/dL (14.0-18.0); MCH 33.4 pg (26.0-34.0); MCHC 34.2 g/dL (28.0-37.0); MCV 97.8 fL (80.0-100.0); MPV 6.9 fl. (7.2-11.1); NUCLEATED RBCS 0 /100WBC; PLATELET COUNT* 201 thou/uL (150-400); RBC 2.28 mil/uL (4.50-6.00); WBC 6.6 thou/uL (4.0-11.0)
[2020-03-14 10:59] LABS: APTT 32.5 Seconds (25.0-31.3); INR 1.2; PROTIME 12.4 Seconds (9.20-11.50)
[2020-03-14 11:17] LABS: ABSOLUTE EOSINOPHILS 0.2 thou/uL (0.0-0.7); ABSOLUTE LYMPHOCYTES 2.6 thou/uL (0.8-5.3); ABSOLUTE MONOCYTES 0.1 thou/uL (0.0-1.2); ABSOLUTE NEUTROPHILS 3.8 thou/uL (1.6-8.1); PLATELET ESTIMATE ADEQUATE
[2020-03-14 17:09] VITALS: BP 134/73
[2020-03-14 20:56] VITALS: BP 140/51
[2020-03-15 05:07] LABS: KAPPA FREE LIGHT CHAINS 19.6 mg/L (3.3-19.4); LAMBDA FREE LIGHT CHAINS 547.2 mg/L (5.7-26.3)
[2020-03-15 16:00] VITALS: BP 145/55
[2020-03-16 06:59] LABS: HEMATOCRIT 21.1 % (42.0-52.0); HEMOGLOBIN 7.1 gm/dL (14.0-18.0); MCHC 33.7 g/dL (28.0-37.0); MCV 97.9 fL (80.0-100.0); MPV 6.8 fl. (7.2-11.1); RBC 2.16 mil/uL (4.50-6.00); RDW-CV 14.8 % (10.5-14.5); WBC 7.1 thou/uL (4.0-11.0)
[2020-03-16 07:21] LABS: ALBUMIN 1.8 g/dL (3.4-5.0); CALCIUM 7.7 mg/dL (8.5-10.1); MAGNESIUM 1.8 mg/dL (1.8-2.4); POTASSIUM 3.2 mmol/L (3.5-5.1); TOTAL BILIRUBIN 0.2 mg/dL (<0.1-1.0); TOTAL PROTEIN 9.5 g/dL (6.4-8.2)
[2020-03-16 09:30] VITALS: BP 142/75
[2020-03-16 09:36] VITALS: BP 142/75
[2020-03-16] MEDS ORDERED: IRON325 PO (14:07)
[2020-03-16] MEDS ORDERED: FOLIC ACID1 MG PO (14:08)
[2020-03-16] MEDS ORDERED: DECADRON4 MG PO (14:09)
--- NOTE | 2020-03-17 17:06 | PATH ---
[address] [address] PATHOLOGY RPT PROCEDURE Name: AMYKATARINAMERVIN CELIS Room: [address] M.R.#: [id number] Admission: 03/07/20 Date of : 45 Discharge: 03/16/20 Report #: [id number] Path Case #: [id number] [facility] Accession Number: [id number] . 01 Material submitted: . PART A: bone - BONE MARROW BIOPSY PART B: bone - BONE MARROW CLOT PART C: bone - BONE MARROW ASPIRATE SLIDES PART D: bone - PERIPHERAL BLOOD SMEAR PART E: bone - BONE MARROW FLOW . 01 Clinical history: . 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 SEPSIS, SEVERE UTI, MULTIPLE MYELOMA . 02 Diagnosis: Bone marrow aspirate, biopsy, cell clot and peripheral blood: - Peripheral blood with severe normocytic to mildly macrocytic anemia with RBC rouleaux. - Hypercellular bone marrow with trilineage hematopoiesis, mild dyspoiesis and involvement by plasma cell dyscrasia (60-70% lambda restricted plasma cells by immunohistochemical staining). - See comment. . . Special studies report received from [facility], [address], [address], [place], [address], on case [id number], labeled with their number [id number], dated 03/17/2020. . Flow Cytometry: Hematologic Neoplasia Assessment . Clinical History . . Indication for Study Evaluation for multiple myeloma . Specimen Bone Marrow . Viability 86% (7AAD exclusion) . Interpretation Bone Marrow: Abnormal/ monotypic plasma cell population (2.5% of sample), consistent with [place] [address] PATHOLOGY RPT PROCEDURE Name: KATARINA REYES Room: [address] [place] ..#: [id number] Admission: 03/07/20 Date of : 45 Discharge: 03/16/20 Report #: [id number] Path Case #: [id number] Comments Plasma cells are typically underrepresented by flow cytometry. Correlation with all available clinical, laboratory, and morphologic data is recommended. . Populations Analyzed Myeloid Blasts: 0.5% No significant immunophenotypic abnormalities Lymphocytes: 8% B-cells: 1.3%, polytypic/polyclonal sIg light chain pattern T-cells: no significant abnormalities of the markers tested CD4+ T-cells: 4.7% (including 0.7% CD57+ cells) CD8+ T-cells: 1.7% (including 0.3% CD57+ cells) CD4:CD8: 2.7 NK cells: 0.8% Neutrophilic Cells: 77% No significant abnormalities of the markers tested Monocytic Cells: 7% No significant abnormalities of the markers tested Eosinophils: 3% No relative increase Basophils: 0.3% No relative increase Plasma Cells: 2.6% 1) Abnormal plasma cells, 2.5% of sample, CD45- /+, CD19-, CD20-, CD38+ (bright), CD56+/-, CD117+/-, CD138+, HLA DR-, cIg lambda+ 2) Polytypic plasma cells, 0.1% of sample Hematogones: 0.1% Normal B-cell precursors Remaining CD45 1.6% No significant reactivity with the markers Negative Events/ tested (may represent unlysed red blood cells, Debris: erythroid precursors, platelets, debris, etc.)(erythroid precursors may be underrepresented due to sample lysis/processing) . Morphologic Evaluation A slide was reviewed for quality inspector purposes only. . Specimen Description Total Cell Yield:7.42X10 6 . Reagent(s) Used CD2, CD3, CD4, CD5, CD7, CD8, CD10, CD11b, CD13, CD14, CD16, CD19, CD20, CD33, CD34, CD38, CD45, CD56, CD57, CD64, CD117, HLA-DR, kappa, lambda, CD138, CytoKappa, CytoLambda . at [facility]. Rachael Fernando MD Hematopath[place] [address] PATHOLOGY RPT PROCEDURE Name: KATARINA REYES Room: [address] [place] [facility].#: [id number] Admission: 03/07/20 Date of : 45 Discharge: 03/16/20 Report #: [id number] Path Case #: [id number] Flow cytometry is optimally used to immunophenotypically characterize abnormal populations when they are detected. Negative flow cytometry results do not exclude lymphoma or neoplasia. Possible false negative flow cytometry results may occur in, but are not limited to, the following: neoplastic cells in Hodgkin lymphoma are not typically adequately represented by routine clinical flow cytometry; neoplastic cells may be lost or inadequately represented due to degeneration, sample processing, sampling artifact, or patchy involvement; plasma cells are typically underrepresented by flow cytometry; immature cells/blasts may be underrepresented due to hemodilution; myeloproliferative disorders and low grade myelodysplasia may not have immunophenotypic abnormalities or increased blasts. Correlation with all available clinical, laboratory, and morphologic data is always necessary to assess for the possibility of false negative flow cytometry results and to establish a diagnosis. Each marker in this analysis was used to assess for potential antigenic abnormalities or to evaluate detected abnormalities. . Any image or images that accompany this report are customer field representative images only and should not be used to render a diagnosis. . Disclaimer(s) This test was developed and its performance characteristics determined by [facility]. It has not been cleared or approved by the Food and Drug Administration. . Performing [facility] is a business unit of [facility] a wholly-owned subsidiary of [employer]. . This test was performed at [facility]. at [address], [place], [address] - [employer]: Katarina Rasmussen MD. . For inquiries, the physician may contact Lab: [phone] . A complete copy of the report is on file. . Professional services performed by [facility] at [address], [place] [address]. Technical services performed by [facility]. at [address], [place] [address]. (CLW:maurisio; 03/17/2020) LBQ 03/17/2020 1401 Local . 02 Comment: Overall, the bone marrow is hypercellular for the patient's age with trilineage hematopoiesis, mild dyspoiesis [place] [address] PATHOLOGY RPT PROCEDURE Name: KATARINA REYES Room: [address] [place] ..#: [id number] Admission: 03/07/20 Date of : 45 Discharge: 03/16/20 Report #: [id number] Path Case #: [id number] dyscrasia. There are approximately 60-70% lambda restricted plasma cells by immunohistochemical staining. Correlation with clinical history, additional laboratory data and radiographic findings is required to determine the extent of the disease process and to exclude the possibility of a plasmacytoma. The dyspoiesis is mild and does not meet the morphologic criteria for myelodysplasia. Correlation with cytogenetics and FISH studies is also recommended. (CLW/db; 03/17/2020) . 02 Electronically signed: . Antionette Slaughter MD, Pathologist NPI- [id number] . 01 Gross description: . A. The specimen is received in formalin, labeled "Katarina Reyes, core" and consists of 3 bone core fragments measuring between 0.2 cm and 0.4 cm in length and 0.2 cm each in diameter which are entirely submitted in A1 following decalcification. . B. The specimen is received in formalin, labeled "Katarina Reyes, clot" and consists of a cylindrical blood clot measuring 3.2 x 1.8 x 1.8 cm which is entirely submitted in B1-B3. (SDY; 03/15/2020) SYU/SYU 03/15/2020 1006 Local . 02 Microscopic: . CBC Data (03/14/20): WBC 6,600 /uL, RBC 2.28, hemoglobin 7.6 g/dL, hematocrit 22.3%, MCV 97.8 fL, MCH 33.4 pg, MCHC 34.2 g/dL, RDW 15%, and platelet count 201,000 /uL. White blood cell differential: segs 57%, lymphs 39%, monos 1%, and eos 3% . Peripheral Blood Smear: Cytomorphological examination of the Horton's stained peripheral blood smear confirms the provided data. Red blood cells show severe normocytic to mildly macrocytic anemia with mild anisocytosis. No significant poikilocytosis is identified. There is RBC rouleaux. White blood cells are predominantly segmented neutrophils and are without significant dyspoiesis or significant left shift. Lymphocytes are predominantly small, round, and mature appearing with condensed chromatin and scant cytoplasm with admixed large granular lymphocytes. On scanning, no plasma cells are seen. Platelets are adequate in number and mainly normal in morphology with rare larger platelets noted. . Aspirate Smears: Cytomorphological examination of the Horton's stained aspirate smears show spicules present. The overall cellularity is approximately 50%. The myeloid to erythroid ratio is 2:1. Full myeloid maturation is identified and is without significant dyspoiesis. Erythroid maturation is mildly dyserythropoietic with irregular nuclear contours and left shifted [facility] [address] [place] [address] PATHOLOGY RPT PROCEDURE Name: KATARINA REYES Room: [address] M.R.#: [id number] Admission: 03/07/20 Date of : 45 Discharge: 03/16/20 Report #: [id number] Path Case #: [id number] maturation. In a 500 cell differential, there are 1% blasts (no Sunny rods are seen), 54% more differentiated myeloids, 27% erythroid precursors, 12% lymphocytes and 6% plasma cells. Megakaryocytes are proportional in number and both normal and abnormal in morphology with variable sizes and nuclear abnormalities. No lymphoid aggregates or markedly atypical lymphoid cells are seen. Plasma cells are mildly atypical with less condensed nuclear chromatin and binucleate forms. Iron stain of the aspirate smear shows 2/4+ iron positivity with spicules present. No ringed sideroblasts are identified. . Core Biopsy and Cell Clot: The decalcified bone marrow core biopsy is adequate. There is significant aspiration artifact. The bone marrow appears hypercellular with an overall cellularity of approximately 50-60%. There is an increase in plasma cells. Apart from the plasma cells, the myeloid to erythroid ratio is 1-2:1. Myeloid and erythroid maturation are mildly dyspoietic. Megakaryocytes are normal in number and both normal and abnormal in morphology. No lymphoid aggregates or markedly atypical lymphoid cells are seen. Bony trabeculae are unremarkable. Blood vessels are inconspicuous. The cell clot has spicules present that are similar in cellularity and differential morphology as previously described. Again, there is an increase in plasma cells. . Properly controlled special stains are performed. . Core biopsy (block A1): Iron - 2/4+ iron positivity; Reticulin - Focal mild reticulin fibrosis; Congo red - Negative for congophilia/amyloid. . Clot section: Iron (blocks B1, B2 and B3) - 1/4+ iron positivity with spicules present; Congo red (block B2) - Negative for congophilia/amyloid. . To further quantify and characterize the plasma cell population, confirm the flow cytometry findings and to identify cells in a tissue architectural context, properly controlled immunohistochemical stains are performed. . Block A1: CD138 - Stains approximately 60% plasma cells; Hayti and lambda in situ hybridization - Plasma cells are lambda restricted. . Block B3: CD138 - Stains approximately 60-70% plasma cells; Hayti and lambda in situ hybridization - Plasma [place] [address] PATHOLOGY RPT PROCEDURE Name: KATARINA REYES Room: [address] [place] ..#: [id number] Admission: 03/07/20 Date of : 45 Discharge: 03/16/20 Report #: [id number] Path Case #: [id number] Flow Cytometry: Flow cytometric immunophenotypic analysis was performed at [facility]. The diagnosis is "abnormal/monotypic plasma cell population (2.5% of sample), consistent with a plasma cell neoplastic process." There are 0.5% myeloid blasts. There are 8% lymphocytes. Of the lymphocytes, there are 1.3% polyclonal B-cells. T-cells have a CD4/CD8 ratio of 2.7 and no aberrant T-cell antigen expression. There are 2.6% plasma cells. Abnormal plasma cells, comprising 2.5% of sample, are characterized as CD45 negative/positive, CD19 negative, CD20 negative, CD38 positive (bright), CD56 positive/negative, CD117 positive/negative, CD138 positive, HLA-DR negative, and cyto lambda positive. Please see separate flow cytometry report from [facility] ([id number]). . Cytogenetics: Cytogenetic chromosomal analysis is pending at [facility] ([id number]). FISH analysis is pending at [facility] ([id number]). . 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 02 Pathologist provided ICD-10: D64.9, D53.9, D75.89 . 02 CPT . 512667, 084320, 300817, 212303, 455330, 388425, 019803, 999730, 213281, 017627, 136613, 906399, 497204, M98421, W04075, E41861 Specimen Comment: A courtesy copy of this report has been sent to [phone] Specimen Comment: Report sent to / DR KYLE Performed at: 01 [facility] [address] [id number] MD Nilson Vincent MD Phone: [phone] Performed at: 02 [facility] [address] [id number] MD Rober Geronimo MD Phone: [phone]
== END 2020-03-16 17:05 | DRG 871 ==
LOC: M.ERS 20:45 → M.TBA-ER 03-07 03:43 → M.3W 03-07 09:52
PROVIDERS: Emergency Medicine; Internal Medicine; ADMIT Internal Medicine; ATTEND Internal Medicine
PROC: 07DR3ZX Extraction of Iliac Bone Marrow, Percutaneous Approach, Diagnostic (ICD-10-PCS; principal; 2020-03-14)
DX: A41.9 Sepsis, unspecified organism (principal); N17.0 Acute kidney failure with tubular necrosis; G92 Toxic encephalopathy; C90.00 Multiple myeloma not having achieved remission; N30.01 Acute cystitis with hematuria; R47.01 Aphasia; E83.51 Hypocalcemia; E83.42 Hypomagnesemia; F03.90 Unspecified dementia, unspecified severity, without behavioral disturbance, psychotic disturbance, mood disturbance, and anxiety; D89.2 Hypergammaglobulinemia, unspecified; F41.9 Anxiety disorder, unspecified; N18.30 Chronic kidney disease, stage 3 unspecified; K21.9 Gastro-esophageal reflux disease without esophagitis; I73.9 Peripheral vascular disease, unspecified; G20 Parkinson's disease; F02.80 Dementia in other diseases classified elsewhere, unspecified severity, without behavioral disturbance, psychotic disturbance, mood disturbance, and anxiety; G25.3 Myoclonus; M81.0 Age-related osteoporosis without current pathological fracture; I12.9 Hypertensive chronic kidney disease with stage 1 through stage 4 chronic kidney disease, or unspecified chronic kidney disease; Z20.828 Contact with and (suspected) exposure to other viral communicable diseases; Z90.49 Acquired absence of other specified parts of digestive tract; Z86.73 Personal history of transient ischemic attack (TIA), and cerebral infarction without residual deficits; Z79.82 Long term (current) use of aspirin; Z79.899 Other long term (current) drug therapy; Z88.5 Allergy status to narcotic agent; Z88.0 Allergy status to penicillin; Z88.1 Allergy status to other antibiotic agents; Z91.011 Allergy to milk products